=== PATIENT | female | born 1960 | race Hispanic/Latino ===

== ENCOUNTER 2023-12-10 15:03 | Emergency (ER) | payer BC ==
--- NOTE | 2023-12-10 15:30 | EDPHYS ---
Physician Documentation [facility] Name: Lana Hernández Age: 63 yrs Sex: Female : 1960 Arrival Date: 12/10/2023 Time: 15:03 Bed IW1 Private MD: ED Physician Jovany Vicente HPI: 12/09 15:27 This 63 yrs old Female presents to ER via Unassigned with complaints of Hives. kb 15:27 Pt is a 63 year old female who presents for hives that started one week ago. c/o kb itching. Denies shortness of breath. Historical: - Allergies: 15:31 Promethazine; tm6 15:31 PENICILLINS; tm6 - PMHx: 15:31 stroke; Hypertensive disorder; Diabetes mellitus; tm6 - PSHx: 15:31 None; tm6 - Immunization history:: Client reports receiving the 2nd dose of the Covid vaccine. - Infectious Disease History:: Denies. - Social history:: Smoking status: Patient denies any tobacco usage or history of. Patient/guardian denies using alcohol. ROS: 15:26 Constitutional: As per HPI kb Exam: 15:26 Constitutional: This is a well developed, well nourished patient who is awake, alert, kb and in no acute distress. Head/Face: Normocephalic, atraumatic. ENT: Moist Mucous membranes Cardiovascular: Regular rate Respiratory: Respirations even and unlabored. No increased work of breathing. Talking in full sentences Abdomen/GI: Soft, non-tender. No distention MS/ Extremity: Pulses equal, no cyanosis. Neurovascular intact. Full, normal range of motion. Neuro: Awake and alert, GCS 15, oriented to person, place, time, and situation. Moves all extremities. Normal gait. 15:26 Skin: rash a mild rash is noted, rash can be described as nonspecific, Vital Signs: 15:29 BP 141 / 86; Pulse 69; Resp 19; Temp 98.6(O); Pulse Ox 99% on R/A; MAP 100 mmHg; Weight tm6 63.5 kg; Height 5 ft. 1 in. ; Pain 0/10; 15:29 Body Mass Index 26.45 (63.50 kg, 154.94 cm) tm6 15:29 Pain Scale: Adult tm6 MDM: 15:22 Medical Screening Exam initiated kb 15:29 Data reviewed: vital signs, nurses notes. kb 15:30 Differential diagnosis: urticaria, insect bites. Counseling: I had a detailed kb discussion with the patient and/or guardian regarding the historical points, exam findings, and any diagnostic results supporting the discharge/admit diagnosis, the need for outpatient follow up, a family practitioner, to return to the emergency department if symptoms worsen or persist or if there are any questions or concerns that arise at home. Administered Medications: 15:44 Drug: Famotidine PO 20 mg PO once Route: PO; tm6 15:45 Follow up: Response: Medication administered at discharge. tm6 Disposition Summary: 12/10/23 15:30 Discharge Ordered Notes: Location: Home kb Condition: Stable kb Diagnosis - Rash and other nonspecific skin eruption kb Followup: kb - With: Emergency Department - When: As needed - Reason: Worsening of condition Followup: kb - With: Private Physician - When: 2 - 3 days - Reason: Recheck today's complaints, Continuance of care, Re-evaluation by your physician Discharge Instructions: - Discharge Summary Sheet kb - Rash, Adult, [id number] kb Forms: - Medication Reconciliation Form kb - Antibiotic Education kb - Prescription Opioid Use kb - Patient Portal Instructions kb - Leadership Thank You Letter kb Prescriptions: - Pepcid 20 mg Oral Tablet - take 1 tablet ORAL route every 12 hours for 5 days; 10 tablet; Refills: 0, kb Product Selection Permitted Signatures: Lara Camilo, Mamadou Granados RN RN tm6
--- NOTE | 2023-12-10 15:30 | ER ---
Nurse's Notes [facility] Name: Lana Hernández Age: 63 yrs Sex: Female : 1960 Arrival Date: 12/10/2023 Time: 15:03 Bed IW1 Private MD: Diagnosis: Rash and other nonspecific skin eruption Presentation: 12/09 15:30 Chief complaint: Patient states: itching started last Sunday. Bumps all over body. tm6 Coronavirus screen: Client denies travel out of the [place] in the last 14 days. Ebola Screen: Patient negative for fever greater than or equal to 101.5 degrees Fahrenheit, and additional compatible Ebola Virus Disease symptoms Patient denies exposure to infectious person. Patient denies travel to an Ebola-affected area in the 21 days before illness onset. No symptoms or risks identified at this time. Onset: The symptoms/episode began/occurred 3 day(s) ago. Anaphylaxis evaluation, the patient reports or I have noted the following symptoms which indicate a significant risk of anaphylaxis: no signs or symptoms of anaphylaxis were noted no signs or symptoms of anaphylaxis were noted. Initial Sepsis Screen: Does the patient meet any 2 criteria? No. Patient's initial sepsis screen is negative. Does the patient have a suspected source of infection? No. Patient's initial sepsis screen is negative. Risk Assessment: Do you want to hurt yourself or someone else? Patient reports no desire to harm self or others. Onset of symptoms was December 07, 2023. 15:30 Method Of Arrival: Ambulatory tm6 15:30 Acuity: DIANE 4 tm6 Triage Assessment: 15:31 General: Appears in no apparent distress. Behavior is calm, cooperative. Pain: Denies tm6 pain. EENT: No signs and/or symptoms were reported regarding the EENT system. Neuro: Level of Consciousness is awake, alert, obeys commands, Oriented to person, place, time, situation. Cardiovascular: Patient's skin is warm and dry. Respiratory: Airway is patent Respiratory effort is even, unlabored, Respiratory pattern is regular, symmetrical. GI: Abdomen is flat, non-distended. : No signs and/or symptoms were reported regarding the genitourinary system. Derm: Rash noted that is on back, right arm, left arm, right leg, left leg and neck Reports itching. Musculoskeletal: No signs and/or symptoms reported regarding the musculoskeletal system. Historical: - Allergies: 15:31 Promethazine; tm6 15:31 PENICILLINS; tm6 - PMHx: 15:31 stroke; Hypertensive disorder; Diabetes mellitus; tm6 - PSHx: 15:31 None; tm6 - Immunization history:: Client reports receiving the 2nd dose of the Covid vaccine. - Infectious Disease History:: Denies. - Social history:: Smoking status: Patient denies any tobacco usage or history of. Patient/guardian denies using alcohol. Screenin:36 [facility] ED Fall Risk Assessment (Adult) History of falling in the last 3 months, tm6 including since admission No falls in past 3 months (0 pts) Confusion or Disorientation No (0 pts) Intoxicated or Sedated No (0 pts) Impaired Gait No (0 pts) Mobility Assist Device Used No (0 pt) Altered Elimination No (0 pt) Score/Fall Risk Level 0 - 2 = Low Risk Oriented to surroundings, Maintained a safe environment, Educated pt \T\ family on fall prevention, incl call for assistance when getting out of bed. Abuse screen: Denies threats or abuse. Denies injuries from another. Nutritional screening: No deficits noted. Tuberculosis screening: No symptoms or risk factors identified. Assessment: 15:36 Reassessment: see triage assessment. Respiratory: Airway is patent Respiratory effort tm6 is even, unlabored, Respiratory pattern is regular, symmetrical, Breath sounds are clear. 16:04 Reassessment: patient left prior to receiving DC paperwork and prescription. tm6 Vital Signs: 15:29 BP 141 / 86; Pulse 69; Resp 19; Temp 98.6(O); Pulse Ox 99% on R/A; MAP 100 mmHg; Weight tm6 63.5 kg; Height 5 ft. 1 in. ; Pain 0/10; 15:29 Body Mass Index 26.45 (63.50 kg, 154.94 cm) tm6 15:29 Pain Scale: Adult tm6 ED Course: 15:06 Patient arrived in ED. mr 15:22 Lara Camilo FNP-C is [facility]. kb 15:22 Jovany Vicente MD is Attending Physician. kb 15:29 Ashley Wang, ELKIN is Primary Nurse. kc6 15:31 Triage completed. tm6 15:31 Arm band placed on right wrist. tm6 15:36 Patient has correct armband on for positive identification. Provided Education on: use tm6 of prescriptions. 15:36 No provider procedures requiring assistance completed. Patient did not have IV access tm6 during this emergency room visit. Administered Medications: 15:44 Drug: Famotidine PO 20 mg PO once Route: PO; tm6 15:45 Follow up: Response: Medication administered at discharge. tm6 Medication: 15:36 VIS not applicable for this client. tm6 Outcome: 15:30 Discharge ordered by MD. bolanos 15:36 Condition: stable tm6 16:04 Discharged to home ambulatory, tm6 16:04 Discharge instructions given to patient left prior to receiving DC paperwork and prescription 16:05 Patient left the ED. tm6 Signatures: Lara Camilo, PATIENT FINANCIAL SPECIALIST-C PATIENT FINANCIAL SPECIALIST-Leny Hernandez, Ashley Lambert, RN RN kc6 Mamadou Lubin RN RN tm6
[2023-12-10] MEDS ORDERED: FAMOTIDINE 20 MG TAB ONE (15:34)
[2023-12-10 17:32] VITALS: BP 141/86; TEMP 98.6; O2SAT 99
== END 2023-12-10 16:05 | disposition home or self-care (01) ==
LOC: ER 15:03
DX: R21 Rash and other nonspecific skin eruption (principal)
CPT/HCPCS: 99283